=== PATIENT | female | born 1960 | race Caucasian/White ===

== ENCOUNTER 2019-09-28 01:05 | Outpatient (CLI) | payer BC, SELFPAY ==
[2019-09-28 19:19] LABS: SARS-CoV-2 RNA PCR Negative
== END 2019-09-28 01:06 | disposition home or self-care (01) ==
LOC: ANHCOVIDDT 01:05
PROVIDERS: PCP Family Medicine; Visit Provider Podiatrist Foot & Ankle Surgery
DX: Z01.818 Encounter for other preprocedural examination (principal); Z11.59 Encounter for screening for other viral diseases
CPT/HCPCS: 87635; C9803; U0003

== ENCOUNTER 2019-09-30 02:26 | Day surgery (SDC) | payer BC, SELFPAY ==
[2019-09-20 10:49] VITALS: BMI 35.9
--- NOTE | 2019-09-29 11:20 | P.PNAN_ITS ---
Anes - Initial Pre Proc Eval Procedure: Operation Date: 09/30/19 11:30 Proposed Procedures p Partial Plantar Fasciectomy Right Foot - Huber Fitch JR, MD Date/Time: 09/29/19 11:20 Surgeon: Hbuer Fitch JR, MD Pre Op Diagnosis: Plantar Fasciitis Right Foot Patient Data Age: 59 Gender: F Height: 1.63 m Weight: 95 kg Allergies Allergy/AdvReac Type Severity Reaction Status Date / Time Sulfa (Sulfonamide Allergy Hives Verified 09/30/19 09:16 Antibiotics) Home Medications Medication Instructions Recorded Confirmed Type meloxicam 15 mg PO DAILY 09/20/19 09/30/19 History vit C-E-zinc [id number] 1 cap PO DAILY 09/20/19 09/30/19 History [ICaps AREDS2] Patient hx anesthesia problems: none Family hx anesthesia problems: none [facility] Past Medical History Medical History (Updated 09/28/19 @ 12:38 by Neo Gregory DO) Macular degeneration Rosacea Surgical History Surgical History (Updated 09/28/19 @ 12:38 by Neo Gregory DO) History of Social History Social History Second hand tobacco smoke exposure: No Substance use: never Living arrangements: with family Anes - Eval Final PreProcedure Day of Procedure 09/29/19 11:20 Patient weight: obese Heart: regular rate and rhythm Lungs: clear to auscultation and normal air movement Airway: Mallampati scale class II and other (temporary caps on top teeth) Neurological: alert and oriented Last oral intake: >/= 8 hours ASA classification: II Emergent: no Anesthetic plan: proceed Anesthesia type and monitoring: general LMA and standard monitoring Informed Consent: The patient's anesthetic plan and its attendant risks and benefits were discussed with the patient/family/POA. Questions were solicited and answers provided to the satisfaction of the patient/family/POA.
[2019-09-30] VITALS (10 sets, daily range): BP systolic 108–142; BP diastolic 57–91; PULSE 57–80; RESP 9–20; TEMP 36.7; O2SAT 93–98
--- NOTE | 2019-09-30 07:15 | WPDHPUPDATE1 ---
History and Physical Update Update Date/Time: 09/30/19 07:15 History and Physical has been reviewed, including an updated exam of the patient. There are NO changes in the patient's condition. Risks, benefits, and alternatives have been discussed and questions answered. Patient agrees to proceed with procedure.
[2019-09-30] MEDS: LACTATED RINGERS 1,000 ML 30 ML IV CONT (10:55)
--- NOTE | 2019-09-30 11:23 | SUR.PREOP ---
update provided r/t to delay w/surgeon/acknowledges understanding/family update provided.
[2019-09-30] MEDS: ceFAZolin 2 GM/D5W 50 ML 2 GM/50 ML BAG IVPB (12:14)
--- NOTE | 2019-09-30 12:52 | PM.OP ---
Procedure Note - Brief Procedure Note - Brief Date of procedure: 09/30/19 Pre-op diagnosis: Plantar Fasciitis Right Foot Post-op diagnosis: same Procedure performed: Partial plantar fasciectomy right foot Anesthesia: GLMA Surgeon: Huber Fitch JR, DPM Estimated blood loss (mL): 1 Complications: No immediate complications Condition: stable Disposition: same day
--- NOTE | 2019-09-30 13:38 | SUR.PHASEI ---
RIGHT FOOT ELEVATED WITH 3 PILLOWS WITH ICE PACK.
--- NOTE | 2019-09-30 18:35 | OP_ITS ---
DATE OF PROCEDURE: 09/30/2019 PREOPERATIVE DIAGNOSIS: Chronic plantar fasciitis of the right foot. POSTOPERATIVE DIAGNOSIS: Chronic plantar fasciitis of the right foot. PROCEDURE PERFORMED: Partial plantar fasciectomy of the right foot. PATHOLOGY: None. ANESTHESIA: General with local. HEMOSTASIS: Pneumatic ankle tourniquet at 250 mmHg. ESTIMATED BLOOD LOSS: Minimal. MATERIALS USED: 3-0 Vicryl, 2-0 Prolene, and 3-0 Prolene. INJECTABLES: 20 mL of Exparel injected preoperatively. COMPLICATIONS: None. PROCEDURE IN DETAIL: Under mild sedation, the patient was brought into the operating room, placed on the operating table in the supine position. Pneumatic ankle tourniquet was placed about the patient's right ankle. Following general anesthesia, local anesthesia was obtained about the right ankle utilizing 20 mL of Exparel along the tibial nerve as well as the common peroneal nerve, 10 mL used in each location. The foot was then scrubbed, prepped, and draped in the usual aseptic manner. An Esmarch bandage was then used to exsanguinate the patient's right foot and the pneumatic ankle tourniquet was inflated. Attention was directed to the plantar aspect of the right heel, where a 3 cm incision was made just distal to the plantar inferior calcaneus. Incision was continued deep down through the subcutaneous tissues using sharp and blunt dissection. All bleeders were ligated and cauterized as necessary. At this point, a Weitlaner retractor was used to dissect down to the level of the plantar fascia. At this point, the plantar fascia was noted to be hypertrophied as well as yellow in discoloration consistent with chronic degeneration. Chronic fasciosis. Next, a #15 blade was used to transect the medial and central bands of the plantar fascia leaving the lateral band intact. After the plantar fascia was transected, the intrinsic musculature lying deep to the plantar fascia was visualized. A 3 mm resection of the medial and central band of the plantar fascia was cut out in order to make sure that lengthening of the plantar fascia is maintained even if healing happens. The wound site was flushed with copious amounts of sterile saline. Next, the subcutaneous fat layer was then reapproximated and coapted utilizing 3-0 Vicryl. Next, the subcutaneous structures were reapproximated and coapted utilizing 3-0 Vicryl. Next, the skin was reapproximated with 2-0 Prolene utilizing horizontal mattress suture fashion technique and 3-0 Prolene in simple interrupted suture fashion technique. Upon completion of the procedure, the incision was dressed with Adaptic, 4x4s, Kerlix, and Coban. The pneumatic ankle tourniquet was deflated and a prompt hyperemic response was noted to all digits of the right foot. A CAM walker boot was then applied. The patient did very well with the procedure and anesthesia. She was transferred to the recovery room with vital signs stable and vascular status intact to all toes of the right foot. Following a period of postoperative monitoring, the patient was discharged home on the following written and oral postoperative instructions: 1. Keep the dressing clean, dry, and intact. Use a cast protector bag with showers. 2. The patient to be nonweightbearing for 3 weeks utilizing a knee scooter and a CAM walker boot. 3. The patient should ice and elevate the right foot when at rest. 4. The patient should wear a CAM walker boot at all times in order to the allow lengthening of the plantar fascia postoperatively. 5. The patient to contact Dr. Fitch for all postop care and if any problems should arise. 6. Prescriptions were written for Percocet 5/325 dispensed 30, to be taken 1 p.o. q.4 to 6 hours or as needed for severe pain. D Job #: [id number]
== END 2019-09-30 15:17 | disposition home or self-care (01) ==
PROVIDERS: Absent Provider Podiatrist Foot & Ankle Surgery; PCP Family Medicine; Visit Provider Podiatrist Foot & Ankle Surgery
PROC: (CPT 28119; principal; 2019-09-30 11:30)
DX: M72.2 Plantar fascial fibromatosis (principal); E66.9 Obesity, unspecified; Z68.36 Body mass index [BMI] 36.0-36.9, adult
CPT/HCPCS: 28060; A9270; C9290; J0690; J1100; J2250; J2405; J2704; J3010; J7120